=== PATIENT | male | born 1980 | race Caucasian/White ===

== ENCOUNTER 2016-11-14 19:11 | Emergency (ER) | payer BC, OTHER ==
[~2016-11-14] VITALS: Ht 170.2 cm; Wt 123.0 kg
[2016-11-14 19:20] VITALS: BP 148/99; PULSE 119; RESP 22; TEMP 98.9; Ht 170.2 cm; Wt 123.0 kg
[2016-11-14] MEDS ORDERED: ALBUTEROL 0.5% (NEB) 2.5 MG/0.5 ML AMP NEB STA (19:29)
[2016-11-14] MEDS ORDERED: METHYLPREDNISOLONE 125 MG INJ IV STA (19:29)
[2016-11-14] MEDS ORDERED: IPRATROPIUM (NEB) 0.5 MG/2.5 ML AMP NEB STA (19:29)
[2016-11-14 19:51] LABS: ADD SCAN DIFF NO
[2016-11-14 19:54] LABS: HEMATOCRIT 41.9 % (42.0-52.0); HEMOGLOBIN 13.9 g/dl (14.0-18.0); MEAN CORPUSCULAR HEMOGLOBIN 28.2 pg (29.0-33.0); MEAN CORPUSCULAR HGB CONC 33.2 g/dl (32.0-37.0); MEAN PLATELET VOLUME 10.2 fl (7.4-10.4); PLATELET COUNT 260 10^3/UL (140-415); RED BLOOD COUNT 4.93 10^6/ul (4.70-6.10); RED CELL DISTRIBUTION WIDTH 13.4 % (11.5-14.5); WHITE BLOOD COUNT 11.5 10^3/ul (4.8-10.8)
[2016-11-14 20:05] LABS: CHLORIDE 101 mmol/L (97-110); SODIUM 140 mmol/L (135-144)
[2016-11-14 20:08] LABS: ANION GAP 16 (8-16); CARBON DIOXIDE 27 mmol/L (21-31); CREATININE 0.72 mg/dl (0.61-1.24)
[2016-11-14 20:09] LABS: BLOOD UREA NITROGEN 12 mg/dl (7-20); CALCIUM 9.1 mg/dl (8.4-10.2); GLUCOSE 175 mg/dl (70-220)
--- NOTE | 2016-11-14 20:18 | RADRPT ---
PROCEDURE: XR Chest. CLINICAL INDICATION: chest pain TECHNIQUE: Single frontal view of the chest was obtained COMPARISON: None FINDINGS: The heart and mediastinum are within normal limits. The lungs are clear. There is no pleural effusion or pneumothorax. RPTAT: AA IMPRESSION: No acute disease. .Miko Valdez MD, Date Time Electronically viewed and signed by .Miko Valdez MD, on 11/14/2016 20:18 .S/
[2016-11-14 20:19] LABS: INR 0.96; PROTIME 12.8 Sec (12.2-14.2)
[2016-11-14 20:22] LABS: D-DIMER 305.27 ng/ml (<460)
[2016-11-14 20:24] LABS: PARTIAL THROMBOPLASTIN TIME 29.2 Sec (25.0-35.0); TROPONIN-I < 0.012 ng/ml (0.00-0.12)
[2016-11-14 20:55] LABS: EOSINOPHILS # 1.4 10^3/ul (0.0-0.5); LYMPHOCYTES # 5.9 10^3/ul (0.8-2.9); MONOCYTE # 0.7 10^3/ul (0.3-0.9); NEUTROPHIL # 3.6 10^3/ul (1.6-7.5); PLATELET ESTIMATE PLT APPEAR ADEQUATE
[2016-11-14] MEDS ORDERED: ZOLP5TAB PO (21:53)
--- NOTE | 2016-11-14 21:53 | ERD ---
ER Documentation Chief Complaint Date/Time DATE: 11/14/16 TIME: 21:50 Chief Complaint bib ra c/o SOB x 2 days, constant today, no pain, LS clear, anxious, hx [place] HPI This is a 36-year-old male who presents to the emergency room for evaluation of shortness of breath. The patient states that he has a history of a previous heart attack. He states that he was told he has sleep apnea however he does not have a CPAP machine. The patient states that he has been short of breath for 2 months and has gotten worse over the past 2 days. He states that breathing treatments to help his shortness of breath. The patient denies any palpitations or active chest pain at this time. ROS All systems reviewed and are negative except as per history of present illness. Medications Home Meds No Active Prescriptions or Reported Meds Allergies Allergies: Coded Allergies: No Known Drug Allergies (Verified Allergy, Unknown, 11/14/16) PMhx/Soc History of Surgery: Yes Anesthesia Reaction: No Hx Neurological Disorder: No Hx Respiratory Disorders: No Hx Cardiac Disorders: Yes ([place], stent placement) Hx Psychiatric Problems: No Hx Miscellaneous Medical Probl: No Hx Alcohol Use: No Hx Substance Use: No Hx Tobacco Use: Yes Smoking Status: Current every day smoker Physical Exam Vitals Vital Signs Date Time Temp Pulse Resp B/P Pulse Ox O2 Delivery O2 Flow Rate FiO2 11/14/16 19:48 115 20 98 21 11/14/16 19:20 98.9 119 22 148/99 97 Nasal Cannula 2.0 11/14/16 19:20 Nasal Cannula 2 11/14/16 19:20 Nasal Cannula 2.0 11/14/16 19:20 98.9 119 21 148/99 97 Physical Exam INITIAL VITAL SIGNS: Reviewed by me GENERAL: The patient is well developed and appropriate for usual state of health in no apparent distress HEENT: Pupils equal, round, and reactive to light. EOMI. There is no scleral icterus. NECK: C-spine is soft and supple, there is no meningismus. There is no cervical lymphadenopathy. LUNGS: Diminished bilaterally. There are no rales, wheezes or rhonchi. HEART: Tachycardic, no murmurs, clicks, rubs or gallops. ABDOMEN: Obese limiting exam soft, non-tender, non-distended. There are bowel sounds in all four quadrants. No rebound or guarding. EXTREMITIES: There is no peripheral cyanosis or edema. No focal swelling or erythema. NEUROLOGICAL: The patient moves all four extremities with 5/5 strength. Cranial nerves II - XII are intact. Normal gait. Alert and oriented SKIN: There is no apparent rash or petechiae. HEME/LYMPHATIC: There is no evidence of excessive bruising or lymphedema. PSYCHIATRIC: The patient does not appear anxious or depressed. Result Diagram: 11/14/16192411/14/161924 Results 24 hrs Laboratory Tests Test 11/14/16 19:25 White Blood Count 11.510^3/ul Red Blood Count 4.9310^6/ul Hemoglobin 13.9g/dl Hematocrit 41.9% Mean Corpuscular Volume 85.0fl Mean Corpuscular Hemoglobin 28.2pg Mean Corpuscular Hemoglobin Concent 33.2g/dl Red Cell Distribution Width 13.4% Platelet Count 23906^3/UL Mean Platelet Volume 10.2fl Neutrophils % 31.0% Lymphocytes % 51.0% Monocytes % 6.0% Eosinophils % 12.0% Neutrophils # 3.610^3/ul Lymphocytes # 5.910^3/ul Monocytes # 0.710^3/ul Eosinophils # 1.410^3/ul Platelet Estimate PLT APPEAR ADEQUATE Prothrombin Time 12.8Sec Prothrombin Time Ratio 1.0 INR International Normalized Ratio 0.96 Activated Partial Thromboplast Time 29.2Sec D-Dimer 305.27ng/ml D-Dimer Comment Sodium Level 140mmol/L Potassium Level 4.0mmol/L Chloride Level 101mmol/L Carbon Dioxide Level 27mmol/L Anion Gap 16 Blood Urea Nitrogen 12mg/dl Creatinine 0.72mg/dl Glucose Level 175mg/dl Calcium Level 9.1mg/dl Troponin I < 0.012ng/ml Current Medications Medications (Trade) Dose Ordered Sig/Aldo Route PRN Reason Start Time Stop Time Status Last Admin Dose Admin Albuterol (Proventil 0.5% (Neb)) 10 mg ONCE STAT NEB 11/14/16 19:29 11/14/16 19:35 DC 11/14/16 19:48 Ipratropium [place] (Atrovent 0.02% (Neb)) 0.5 mg ONCE STAT NEB 11/14/16 19:29 11/14/16 19:35 DC 11/14/16 19:48 Methylprednisolone Sodium Succinate (Solu-Medrol) 125 mg ONCE STAT IV 11/14/16 19:29 11/14/16 19:35 DC 11/14/16 19:41 Procedures/MDM EKG: Rate/Rhythm: Sinus tachycardia QRS, ST, T-waves: [No changes consistent w/ acute ischemia] Impression: [No evidence of ischemia or arrhythmia] Chest X-ray 1V Interpreted by me: Soft Tissue: No acute abnormalities Bones: No acute abnormalities Mediastinum/Cardiac Silhouette/Lungs: [No acute abnormalities] This 36-year-old male presents to the emergency room for evaluation of shortness of breath. When I evaluated this patient he did appear to be mildly anxious on my examination. The patient did have lab work drawn including a troponin which is negative. His d-dimer is also within normal limits. The patient was given a breathing treatment with albuterol and Atrovent. Chest x- ray is clear. The patient is not hypoxic, no no respiratory distress after breathing treatment. The patient states that he just needs a medicine to help him sleep at night. The patient states that he previously took Ambien which helps him out with sleep. He is also asking for CPAP machine. I advised him that I cannot give him a CPAP machine in the emergency room and the patient will be discharged home with a 3 tabs of Ambien 5 mg. Smoking Cessation Therapy: Pt. was lectured for greater than 3 minutes on the health risks of continued smoking and the benefits of cessation. Departure Diagnosis: Primary Impression: Shortness of breath Additional Impressions: Tobacco abuse Morbid obesity Condition: Stable RANDY LUO DO November 14, 2016 21:52
== END 2016-11-14 22:17 | disposition home or self-care (01) ==
LOC: E/R 19:11
DX: R06.02 Shortness of breath (principal); F17.210 Nicotine dependence, cigarettes, uncomplicated; E66.01 Morbid (severe) obesity due to excess calories; Z68.41 Body mass index [BMI] 40.0-44.9, adult; Z98.61 Coronary angioplasty status
CPT/HCPCS: 36415; 71010; 80048; 84484; 85025; 85378; 85610; 85730; 93005; 94644; 96374; 99285; J2930

== ENCOUNTER 2017-06-24 08:59 | Emergency (ER) | END 2017-06-24 11:44 | disposition home or self-care (01) ==

== ENCOUNTER 2017-08-10 10:33 | Inpatient (IN) | END 2017-08-14 12:05 | disposition left against medical advice (07) | DRG 291 ==

== ENCOUNTER 2017-08-14 15:01 | Emergency (ER) | END 2017-08-14 15:29 | disposition left against medical advice (07) ==

== ENCOUNTER 2017-08-14 15:57 | Emergency (ER) | END 2017-08-14 18:56 | disposition left against medical advice (07) ==